=== PATIENT | male | born 1965 | race Hispanic/Latino ===

== ENCOUNTER 2020-06-04 19:25 | Inpatient (IN) | payer OTHER, SELFPAY ==
[2020-06-04 20:01] LABS: Hemoglobin 15.6 g/dL (13.5-17.5); Mean Corpuscular HGB CONC 33.8 g/dL (32.0-36.0); Mean Corpuscular Hemoglobin 32.1 pg (27.0-33.0); Mean Corpuscular Volume 94.9 fl (81.2-95.1); Mean Platelet Volume 9.3 fl (7.4-10.4); Platelet Count 405 10x3/uL (150-450); RBC Distribution Width 12.9 % (11.5-14.5); Red Blood Cell (RBC) Count 4.86 10x6/uL (4.32-5.72); White Blood Cell (WBC) Count 37.4 10x3/uL (3.5-10.5)
[2020-06-04] MEDS ORDERED: Piperacillin/Tazobactam 4.5 GM VIAL ONE (20:02)
[2020-06-04 20:17] LABS: ALT (SGPT) 11 U/L (8-55); AST (SGOT) 11 U/L (5-34); Albumin 3.9 g/dL (3.5-5.0); Alkaline Phosphatase 108 U/L (40-110); Anion Gap 21 mmol/L (10-20); BUN (Urea Nitrogen) 40 mg/dL (8.4-25.7); Bilirubin, Total 0.8 mg/dL (0.2-1.2); Calc. Creatinine Clearance 0 mL/min (70-130); Carbon Dioxide 20 mmol/L (22-29); Chloride 96 mmol/L (98-107); Globulin 4.5 g/dL (2.4-3.5); Glucose 139 mg/dL (70-105); Lipase 16 U/L (8-78); Potassium 4.2 mmol/L (3.5-5.1); Protein, Total 8.4 g/dL (6.0-8.3); Sodium 133 mmol/L (136-145)
[2020-06-04 20:28] LABS: Band 3 % (5-11); Lymphocytes 4 % (21-51); Monocytes 5 % (0-10); Neutrophil 88 % (42-75)
[2020-06-04 20:29] LABS: MDiff Complete? YES; Manual Diff?? YES
[2020-06-04 20:31] LABS: Platelet Morphology Comment Appears Adequate; RBC Morphology Normal
[2020-06-04 20:33] LABS: Reflex for Review?? YES
[2020-06-04 21:10] LABS: Bilirubin 1+ (Negative); Blood, Urine Negative (Negative); Clarity Clear (Clear); Glucose, Urine (Dipstick) Normal (Negative); Ketone, Urine 5 mg/dL (Negative); Leukocyte 25 (Negative); Nitrite Negative (Negative); Protein, Urine (Dipstick) 100 mg/dl (Neg-Trace)
[2020-06-04 21:34] LABS: Bacteria/HPF 3+ HPF (None Seen); Mucous/LPF 1+ LPF (<2+); RBC/HPF 0-3 HPF (0-3); Squamous Epithelial 0-3 HPF (0-3); Transitional Epithelial 0-3 HPF (None Seen); WBC/HPF 0-3 HPF (0-3)
[2020-06-04 21:35] LABS: Unclassified Crystals 1+ HPF (None Seen)
[2020-06-04 22:40] LABS: SARS-CoV-2 NAA Rapid Test Not Detected (NotDetected)
[2020-06-04] MEDS: Sodium Chloride 0.9% 1,000 ML IV SCH (22:50)
[2020-06-04] MEDS ORDERED: Ondansetron ODT 4 MG TAB SL PRN (23:00)
[2020-06-04] MEDS ORDERED: Ondansetron PF 4 MG/2 ML Vial IVP PRN (23:00)
[2020-06-04] MEDS ORDERED: Morphine 4 MG/ML VIAL SLOW IVP PRN (23:01)
[2020-06-04 23:16] VITALS: BMI 29.0
[2020-06-05] MEDS: Piperacillin/Tazobactam 3.375 GM in Sodium Chloride 0.9% 100 ML IVPB SCH ×3 (00:03→16:45)
[2020-06-05 06:35] LABS: Hemoglobin 13.3 g/dL (13.5-17.5); Mean Corpuscular HGB CONC 33.3 g/dL (32.0-36.0); Mean Corpuscular Hemoglobin 32.3 pg (27.0-33.0); Mean Corpuscular Volume 97.1 fl (81.2-95.1); Mean Platelet Volume 9.5 fl (7.4-10.4); Platelet Count 381 10x3/uL (150-450); RBC Distribution Width 12.8 % (11.5-14.5); Red Blood Cell (RBC) Count 4.12 10x6/uL (4.32-5.72); White Blood Cell (WBC) Count 31.4 10x3/uL (3.5-10.5)
[2020-06-05 06:46] LABS: Anion Gap 16 mmol/L (10-20); BUN (Urea Nitrogen) 34 mg/dL (8.4-25.7); Calc. Creatinine Clearance 97 mL/min (70-130); Calcium 9.2 mg/dL (7.8-10.44); Carbon Dioxide 21 mmol/L (22-29); Chloride 102 mmol/L (98-107); Glucose 106 mg/dL (70-105); Potassium 4.1 mmol/L (3.5-5.1); Sodium 135 mmol/L (136-145)
[2020-06-05 07:26] LABS: MDiff Complete? YES
[2020-06-05] MEDS: Sodium Chloride 0.9% 1,000 ML IV SCH (07:53)
[2020-06-05 07:54] LABS: Band 2 % (5-11); Lymphocytes 8 % (21-51); Monocytes 8 % (0-10); Neutrophil 81 % (42-75); Reactive Lymphocytes 1 % (0-10)
[2020-06-05 07:55] LABS: Platelet Morphology Comment Appears Adequate
[2020-06-05] MEDS ORDERED: Ondansetron PF 4 MG/2 ML Vial ONE (09:16)
[2020-06-05] MEDS ORDERED: Fentanyl 100 MCG/2 ML VIAL ONE (09:16)
[2020-06-05] MEDS ORDERED: Midazolam HCl 5 mg/5 ml Vial ONE (09:17)
[2020-06-05] MEDS ORDERED: Lidocaine 1% PF 5 ML VIAL ONE (09:17)
[2020-06-05] MEDS ORDERED: Naloxone HCl 0.4 mg/ml Vial ONE (09:17)
[2020-06-05] MEDS ORDERED: Sodium Chloride 0.9% 1,000 ML ONE (09:18)
[2020-06-05] MEDS ORDERED: Sodium Bicarbonate 2.5 MEQ/5 ML VIAL ONE (09:18)
[2020-06-05] MEDS ORDERED: Morphine 4 MG/ML VIAL SLOW IVP PRN (09:52)
[2020-06-05] MEDS ORDERED: hydrALAZINE 20 MG/ML VIAL SLOW IVP PRN (09:52)
[2020-06-05] MEDS ORDERED: Morphine 2 MG/ML VIAL SLOW IVP PRN (09:52)
[2020-06-05] MEDS ORDERED: Calcium Carbonate 500 MG ChewTAB PO PRN (09:52)
[2020-06-05] MEDS ORDERED: Promethazine HCl 25 MG/ML VIAL IM PRN (09:52)
[2020-06-05] MEDS ORDERED: Ondansetron PF 4 MG/2 ML Vial IVP PRN (09:52)
[2020-06-05] MEDS ORDERED: Lidocaine 1% (PF) 30 ML VIAL ONE (09:59)
[2020-06-05] MEDS ORDERED: Mag-Al Plus 1200 MG/1200 MG/120 MG/30 ML UDCUP PO PRN (10:14)
[2020-06-05] MEDS: Ketorolac Tromethamine 30 MG/ML VIAL IVP SCH ×2 (12:30→18:38)
[2020-06-05] MEDS: Lactated Ringer's 1,000 ML IV SCH ×2 (12:30→23:35)
[2020-06-05] MEDS ORDERED: Acetaminophen 325 MG TAB PO PRN (14:38)
[2020-06-05] MEDS: Famotidine/PF 20 mg/2ml Vial SLOW IVP SCH (19:50)
[2020-06-05] MEDS ORDERED: Enoxaparin Sodium 40 MG/0.4 ML SYRINGE SC SCH (21:00)
[2020-06-06] MEDS: Piperacillin/Tazobactam 3.375 GM in Sodium Chloride 0.9% 100 ML IVPB SCH ×2 (02:43→10:18)
[2020-06-06] MEDS: Ketorolac Tromethamine 30 MG/ML VIAL IVP SCH ×2 (05:21→12:07)
[2020-06-06 06:08] LABS: ALT (SGPT) 42 U/L (8-55); AST (SGOT) 54 U/L (5-34); Alkaline Phosphatase 113 U/L (40-110); Anion Gap 12 mmol/L (10-20); BUN (Urea Nitrogen) 28 mg/dL (8.4-25.7); Calc. Creatinine Clearance 117 mL/min (70-130); Calcium 8.9 mg/dL (7.8-10.44); Carbon Dioxide 23 mmol/L (22-29); Chloride 106 mmol/L (98-107); Globulin 3.3 g/dL (2.4-3.5); Glucose 99 mg/dL (70-105); Potassium 4.5 mmol/L (3.5-5.1); Protein, Total 6.3 g/dL (6.0-8.3); Sodium 136 mmol/L (136-145)
[2020-06-06 06:11] LABS: #Basophils 0.1 10x3/uL (0.0-0.2); #Eosinphils 0.3 10x3/uL (0.0-0.5); #Monocytes 1.4 10x3/uL (0.0-1.1); #Neutrophils 12.8 10x3/uL (1.5-8.4); %Basophils 0.4 % (0.0-2.0); %Lymphocytes 8.3 % (18.0-47.0); %Monocytes 8.8 % (0.0-10.0); %Neutrophils 79.9 % (40.0-75.0); Hemoglobin 13.1 g/dL (13.5-17.5); Mean Corpuscular HGB CONC 33.3 g/dL (32.0-36.0); Mean Corpuscular Hemoglobin 32.3 pg (27.0-33.0); Mean Corpuscular Volume 96.8 fl (81.2-95.1); Platelet Count 369 10x3/uL (150-450); Red Blood Cell (RBC) Count 4.06 10x6/uL (4.32-5.72)
[2020-06-06] MEDS: Lactated Ringer's 1,000 ML IV SCH (06:35)
[2020-06-06 12:02] VITALS: BP 159/85; TEMP 98.2
[2020-06-06] MEDS: Famotidine/PF 20 mg/2ml Vial SLOW IVP SCH (12:07)
== END 2020-06-06 12:15 | disposition home or self-care (01) | DRG 392 ==
LOC: CSHERS 19:25 → CSHTELE 23:07
PROVIDERS: ADMIT Surgery; ATTEND Surgery
PROC: 0D9E30Z Drainage of Large Intestine with Drainage Device, Percutaneous Approach (ICD-10-PCS; principal; 2020-06-05)
DX: K57.20 Diverticulitis of large intestine with perforation and abscess without bleeding (principal); N17.9 Acute kidney failure, unspecified; E86.0 Dehydration; Z20.822 Contact with and (suspected) exposure to COVID-19
CPT/HCPCS: 36415; 49020; 71045; 74177; 80048; 80053; 80500; 81003; 81015; 83605; 83690; 85025; 87040; 87070; 87077; 87086; 87186; 87205; 93005; 96365; 96366; 99152; 99153; C1729; J1650; J1885; J2001; J2250; J2270; J2310; J2405; J2543; J3010; J3490; J7050; S0028; U0002

== ENCOUNTER 2020-06-14 12:22 | Inpatient (IN) | payer SELFPAY ==
[2020-06-14 13:38] LABS: Hemoglobin 14.6 g/dL (13.5-17.5); Mean Corpuscular HGB CONC 32.7 g/dL (32.0-36.0); Mean Corpuscular Hemoglobin 31.9 pg (27.0-33.0); Mean Corpuscular Volume 97.4 fl (81.2-95.1); Mean Platelet Volume 8.7 fl (7.4-10.4); Platelet Count 830 10x3/uL (150-450); RBC Distribution Width 13.2 % (11.5-14.5); Red Blood Cell (RBC) Count 4.58 10x6/uL (4.32-5.72)
[2020-06-14 13:43] LABS: White Blood Cell (WBC) Count 28.6 10x3/uL (3.5-10.5)
[2020-06-14] MEDS ORDERED: Meropenem 500 MG VIAL ONE (13:47)
[2020-06-14 13:49] LABS: ALT (SGPT) 15 U/L (8-55); AST (SGOT) 16 U/L (5-34); Albumin 3.5 g/dL (3.5-5.0); Alkaline Phosphatase 86 U/L (40-110); Anion Gap 21 mmol/L (10-20); BUN (Urea Nitrogen) 19 mg/dL (8.4-25.7); Bilirubin, Total 0.6 mg/dL (0.2-1.2); Calc. Creatinine Clearance 0 mL/min (70-130); Calcium 9.9 mg/dL (7.8-10.44); Carbon Dioxide 22 mmol/L (22-29); Chloride 99 mmol/L (98-107); Globulin 4.6 g/dL (2.4-3.5); Glucose 101 mg/dL (70-105); Potassium 4.6 mmol/L (3.5-5.1); Protein, Total 8.1 g/dL (6.0-8.3); Sodium 137 mmol/L (136-145)
[2020-06-14 14:38] LABS: Eosinophils 1 % (0-10); Lymphocytes 8 % (21-51); Monocytes 4 % (0-10); Myelocyte 1 % (0-0); Neutrophil 86 % (42-75)
[2020-06-14 14:39] LABS: Giant Platelets SLIGHT; Large Platelets SLIGHT; MDiff Complete? YES; Platelet Morphology Comment Appears Increased; RBC Morphology Normal
[2020-06-14] MEDS ORDERED: Morphine 4 MG/ML VIAL ONE (15:47)
[2020-06-14] MEDS ORDERED: HYDROcodone/Acetaminophen 10/325 mg Tablet PO PRN ×2 (16:07)
[2020-06-14] MEDS ORDERED: Morphine 2 MG/ML VIAL SLOW IVP PRN (16:07)
[2020-06-14] MEDS ORDERED: Ondansetron PF 4 MG/2 ML Vial IVP PRN (16:07)
[2020-06-14] MEDS ORDERED: Lorazepam 2 MG/ML VIAL SLOW IVP PRN ×2 (16:07)
[2020-06-14] MEDS ORDERED: Ondansetron ODT 4 MG TAB PO PRN (16:07)
[2020-06-14] MEDS ORDERED: hydrALAZINE 20 MG/ML VIAL SLOW IVP PRN (16:07)
[2020-06-14] MEDS ORDERED: Ibuprofen 600 MG TAB PO PRN (16:15)
[2020-06-14] MEDS ORDERED: traMADol HCl 50 MG TAB PO PRN (16:15)
[2020-06-14] MEDS ORDERED: Acetaminophen 500 MG TAB PO PRN (16:15)
[2020-06-14 16:32] LABS: INR-International Normal Ratio 1.4; PTT 34.7 sec (22.0-33.0); Prothrombin Time 15.5 sec (9.5-12.1)
[2020-06-14 16:58] VITALS: BMI 25.5
[2020-06-14] MEDS ORDERED: Piperacillin/Tazobactam 4.5 GM VIAL ONE (17:58)
[2020-06-14] MEDS: Piperacillin/Tazobactam 4.5 GM in Sodium Chloride 0.9% 100 ML IVPB SCH (18:32)
[2020-06-14] MEDS: Famotidine 20 MG TAB PO SCH (19:45)
[2020-06-14] MEDS ORDERED: Enoxaparin Sodium 40 MG/0.4 ML SYRINGE SC SCH (21:00)
[2020-06-15] MEDS: Piperacillin/Tazobactam 4.5 GM in Sodium Chloride 0.9% 100 ML IVPB SCH ×2 (01:02→09:47)
[2020-06-15] MEDS ORDERED: Sodium Chloride 0.9% 100 ML ONE (01:44)
[2020-06-15] MEDS ORDERED: Piperacillin/Tazobactam 4.5 GM VIAL ONE ×2 (01:54→07:17)
[2020-06-15] MEDS: Morphine 4 MG/ML VIAL SLOW IVP PRN ×2 (03:03→11:39)
[2020-06-15 06:27] LABS: #Basophils 0.1 10x3/uL (0.0-0.2); #Eosinphils 0.1 10x3/uL (0.0-0.5); #Monocytes 1.7 10x3/uL (0.0-1.1); #Neutrophils 16.8 10x3/uL (1.5-8.4); %Basophils 0.4 % (0.0-2.0); %Eosinophils 0.4 % (0.0-6.0); %Lymphocytes 11.1 % (18.0-47.0); %Monocytes 7.9 % (0.0-10.0); Hemoglobin 11.8 g/dL (13.5-17.5); Mean Corpuscular HGB CONC 32.3 g/dL (32.0-36.0); Mean Corpuscular Volume 98.9 fl (81.2-95.1); Mean Platelet Volume 9.3 fl (7.4-10.4); Platelet Count 747 10x3/uL (150-450); RBC Distribution Width 13.2 % (11.5-14.5); Red Blood Cell (RBC) Count 3.69 10x6/uL (4.32-5.72); White Blood Cell (WBC) Count 21.2 10x3/uL (3.5-10.5)
[2020-06-15 06:52] LABS: ALT (SGPT) 11 U/L (8-55); AST (SGOT) 18 U/L (5-34); Albumin 2.7 g/dL (3.5-5.0); Alkaline Phosphatase 72 U/L (40-110); Anion Gap 13 mmol/L (10-20); BUN (Urea Nitrogen) 14 mg/dL (8.4-25.7); Bilirubin, Total 0.5 mg/dL (0.2-1.2); Calc. Creatinine Clearance 106 mL/min (70-130); Calcium 8.6 mg/dL (7.8-10.44); Carbon Dioxide 24 mmol/L (22-29); Chloride 103 mmol/L (98-107); Globulin 3.5 g/dL (2.4-3.5); Glucose 91 mg/dL (70-105); Potassium 4.5 mmol/L (3.5-5.1); Protein, Total 6.2 g/dL (6.0-8.3); Sodium 135 mmol/L (136-145)
[2020-06-15] MEDS ORDERED: Lidocaine 1% (PF) 30 ML VIAL ONE (07:16)
[2020-06-15] MEDS ORDERED: Piperacillin/Tazobactam 3.375 GM in Sodium Chloride 0.9% 100 ML IVPB SCH ×2 (08:00→12:00)
[2020-06-15] MEDS ORDERED: Polyethylene Glycol 3350 17 GM Packet PO SCH (09:00)
[2020-06-15] MEDS: Famotidine 20 MG TAB PO SCH (09:37)
[2020-06-15 12:23] VITALS: BP 135/78; TEMP 99.1
[2020-06-15 16:18] LABS: SARS-CoV-2 PCR by NAA Not Detected (NotDetected)
[2020-06-15] MEDS ORDERED: Amoxicillin/Potassium Clav 500 MG TAB PO SCH (21:00)
== END 2020-06-15 13:02 | disposition home or self-care (01) | DRG 346 ==
LOC: CSHERS 12:22 → CSHTELE 16:48
PROVIDERS: ADMIT Specialist; ATTEND Specialist
PROC: 0DW Gastrointestinal System, Revision (ICD-10-PCS; principal; 2020-06-14)
DX: K57.20 Diverticulitis of large intestine with perforation and abscess without bleeding (principal); F17.210 Nicotine dependence, cigarettes, uncomplicated; F10.10 Alcohol abuse, uncomplicated; Z20.822 Contact with and (suspected) exposure to COVID-19
CPT/HCPCS: 36415; 49423; 49424; 74176; 74177; 76000; 80053; 83605; 85025; 85610; 85730; 87040; 87635; 94760; 96365; 96375; J1650; J2001; J2185; J2270; J2543; J3490; U0003; U0005

== ENCOUNTER 2020-06-22 10:45 | Inpatient (IN) | payer SELFPAY ==
[2020-06-22 12:05] LABS: #Basophils 0.1 10x3/uL (0.0-0.2); #Monocytes 1.6 10x3/uL (0.0-1.1); #Neutrophils 16.2 10x3/uL (1.5-8.4); %Basophils 0.3 % (0.0-2.0); %Eosinophils 0.2 % (0.0-6.0); %Lymphocytes 9.9 % (18.0-47.0); %Monocytes 8.1 % (0.0-10.0); %Neutrophils 80.8 % (40.0-75.0); Hemoglobin 14.6 g/dL (13.5-17.5); Mean Corpuscular Hemoglobin 31.4 pg (27.0-33.0); Mean Corpuscular Volume 95.1 fl (81.2-95.1); Mean Platelet Volume 9.2 fl (7.4-10.4); Platelet Count 801 10x3/uL (150-450); RBC Distribution Width 13.1 % (11.5-14.5); Red Blood Cell (RBC) Count 4.65 10x6/uL (4.32-5.72)
[2020-06-22 12:11] LABS: ALT (SGPT) 29 U/L (8-55); AST (SGOT) 27 U/L (5-34); Albumin 3.7 g/dL (3.5-5.0); Alkaline Phosphatase 81 U/L (40-110); Anion Gap 20 mmol/L (10-20); BUN (Urea Nitrogen) 16 mg/dL (8.4-25.7); Calc. Creatinine Clearance 0 mL/min (70-130); Calcium 10.1 mg/dL (7.8-10.44); Carbon Dioxide 23 mmol/L (22-29); Chloride 96 mmol/L (98-107); Globulin 3.8 g/dL (2.4-3.5); Glucose 115 mg/dL (70-105); Lipase 39 U/L (8-78); Potassium 5.3 mmol/L (3.5-5.1); Protein, Total 7.5 g/dL (6.0-8.3); Sodium 134 mmol/L (136-145)
[2020-06-22] MEDS ORDERED: Morphine 4 MG/ML VIAL ONE (12:27)
[2020-06-22] MEDS ORDERED: Ondansetron PF 4 MG/2 ML Vial ONE (12:27)
[2020-06-22 13:25] LABS: Platelet Morphology Comment Appears Increased
[2020-06-22] MEDS ORDERED: Ondansetron PF 4 MG/2 ML Vial IVP PRN (14:33)
[2020-06-22] MEDS ORDERED: Piperacillin/Tazobactam 3.375 GM VIAL ONE (14:42)
[2020-06-22] MEDS: Lactated Ringer's 1,000 ML IV SCH ×2 (17:44→23:15)
[2020-06-22] MEDS: Morphine 4 MG/ML VIAL SLOW IVP PRN ×3 (17:44→23:48)
[2020-06-22 17:45] VITALS: BMI 23.6
[2020-06-22] MEDS: Famotidine/PF 20 mg/2ml Vial SLOW IVP SCH (21:12)
[2020-06-22] MEDS: Piperacillin/Tazobactam 3.375 GM in Sodium Chloride 0.9% 100 ML IVPB SCH (23:16)
[2020-06-23] MEDS: Morphine 4 MG/ML VIAL SLOW IVP PRN ×3 (02:55→09:00)
[2020-06-23 04:42] LABS: #Basophils 0.1 10x3/uL (0.0-0.2); #Eosinphils 0.1 10x3/uL (0.0-0.5); #Monocytes 1.6 10x3/uL (0.0-1.1); #Neutrophils 11.9 10x3/uL (1.5-8.4); %Basophils 0.6 % (0.0-2.0); %Eosinophils 0.8 % (0.0-6.0); %Lymphocytes 12.6 % (18.0-47.0); %Monocytes 9.9 % (0.0-10.0); %Neutrophils 75.2 % (40.0-75.0); Hemoglobin 12.3 g/dL (13.5-17.5); Mean Corpuscular HGB CONC 33.1 g/dL (32.0-36.0); Mean Corpuscular Hemoglobin 31.5 pg (27.0-33.0); Mean Corpuscular Volume 95.1 fl (81.2-95.1); Mean Platelet Volume 8.6 fl (7.4-10.4); Platelet Count 616 10x3/uL (150-450); RBC Distribution Width 13.1 % (11.5-14.5); Red Blood Cell (RBC) Count 3.91 10x6/uL (4.32-5.72); White Blood Cell (WBC) Count 15.9 10x3/uL (3.5-10.5)
[2020-06-23 04:44] LABS: SARS-CoV-2 PCR by NAA Not Detected (NotDetected)
[2020-06-23 04:55] LABS: Anion Gap 15 mmol/L (10-20)
[2020-06-23 05:16] LABS: BUN (Urea Nitrogen) 11 mg/dL (8.4-25.7); Calc. Creatinine Clearance 120 mL/min (70-130); Calcium 8.6 mg/dL (7.8-10.44); Carbon Dioxide 24 mmol/L (22-29); Chloride 98 mmol/L (98-107); Glucose 92 mg/dL (70-105); Potassium 4.2 mmol/L (3.5-5.1); Sodium 133 mmol/L (136-145)
[2020-06-23] MEDS: Piperacillin/Tazobactam 3.375 GM in Sodium Chloride 0.9% 100 ML IVPB SCH ×3 (06:23→23:53)
[2020-06-23] MEDS: Lactated Ringer's 1,000 ML IV SCH ×3 (07:00→17:38)
[2020-06-23] MEDS: Famotidine/PF 20 mg/2ml Vial SLOW IVP SCH ×2 (08:12→20:37)
[2020-06-23] MEDS ORDERED: PROPOFOL 20 ML ONE (12:18)
[2020-06-23] MEDS ORDERED: Midazolam HCl 2 mg/2 ml Vial ONE (12:19)
[2020-06-23] MEDS ORDERED: Ketorolac Tromethamine 15 MG/ML VIAL ONE (12:19)
[2020-06-23] MEDS ORDERED: Fentanyl 100 MCG/2 ML VIAL ONE (12:19)
[2020-06-23] MEDS ORDERED: Glycopyrrolate 0.2 MG/ML 5 ML SYRINGE ONE (12:21)
[2020-06-23] MEDS ORDERED: Ondansetron PF 4 MG/2 ML Vial ONE (12:21)
[2020-06-23] MEDS ORDERED: Dexamethasone 4 mg/ml Vial ONE (12:21)
[2020-06-23] MEDS ORDERED: Lidocaine 1% PF 5 ML VIAL ONE (12:21)
[2020-06-23] MEDS ORDERED: Morphine 1 ML ONE (13:14)
[2020-06-23] MEDS ORDERED: Calcium Gluconate 100 MG/ML 10 ML ONE (13:34)
[2020-06-23] MEDS ORDERED: Calcium Chloride 1 GM/10 ML Abboject SYRINGE ONE (13:36)
[2020-06-23] MEDS ORDERED: PHENYLEPHRINE-NS 100 MCG/ML 10 ML SYRINGE ONE (13:40)
[2020-06-23] MEDS ORDERED: ePHEDrine 50 MG/ML VIAL ONE (14:00)
[2020-06-23] MEDS ORDERED: SUGAMMADEX SODIUM 500 MG/5 ML VIAL ONE (15:53)
[2020-06-23] MEDS ORDERED: Morphine 2 MG/ML VIAL ONE ×2 (17:17→17:29)
[2020-06-23 17:59] LABS: Anion Gap 19 mmol/L (10-20); BUN (Urea Nitrogen) 12 mg/dL (8.4-25.7); Calc. Creatinine Clearance 106 mL/min (70-130); Calcium 8.3 mg/dL (7.8-10.44); Carbon Dioxide 18 mmol/L (22-29); Chloride 101 mmol/L (98-107); Glucose 135 mg/dL (70-105); Potassium 5.1 mmol/L (3.5-5.1); Sodium 133 mmol/L (136-145)
[2020-06-23 18:18] LABS: #Basophils 0.1 10x3/uL (0.0-0.2); #Monocytes 1.1 10x3/uL (0.0-1.1); #Neutrophils 27.6 10x3/uL (1.5-8.4); %Basophils 0.3 % (0.0-2.0); %Lymphocytes 2.4 % (18.0-47.0); %Monocytes 3.6 % (0.0-10.0); Mean Corpuscular HGB CONC 33.9 g/dL (32.0-36.0); Mean Corpuscular Hemoglobin 31.9 pg (27.0-33.0); Mean Corpuscular Volume 93.9 fl (81.2-95.1); Mean Platelet Volume 8.7 fl (7.4-10.4); Platelet Count 622 10x3/uL (150-450); RBC Distribution Width 13.8 % (11.5-14.5); Red Blood Cell (RBC) Count 4.08 10x6/uL (4.32-5.72)
[2020-06-23 20:28] LABS: MDiff Complete? YES; Neutrophil 92 % (42-75)
[2020-06-23 20:29] LABS: Band 2 % (5-11); Lymphocytes 2 % (21-51); Monocytes 2 % (0-10); Reactive Lymphocytes 2 % (0-10)
[2020-06-23 20:34] LABS: Platelet Morphology Comment Appears Increased
[2020-06-23] MEDS: Ketorolac Tromethamine 30 MG/ML VIAL IVP SCH (20:35)
[2020-06-24] MEDS: Ketorolac Tromethamine 30 MG/ML VIAL IVP SCH ×4 (00:33→17:28)
[2020-06-24 05:25] LABS: #Basophils 0.1 10x3/uL (0.0-0.2); #Monocytes 1.8 10x3/uL (0.0-1.1); #Neutrophils 19.6 10x3/uL (1.5-8.4); %Basophils 0.2 % (0.0-2.0); %Lymphocytes 7.4 % (18.0-47.0); %Monocytes 7.8 % (0.0-10.0); %Neutrophils 83.5 % (40.0-75.0); Hemoglobin 11.6 g/dL (13.5-17.5); Mean Corpuscular HGB CONC 34.1 g/dL (32.0-36.0); Mean Corpuscular Hemoglobin 31.5 pg (27.0-33.0); Mean Corpuscular Volume 92.4 fl (81.2-95.1); Mean Platelet Volume 8.6 fl (7.4-10.4); Platelet Count 562 10x3/uL (150-450); Red Blood Cell (RBC) Count 3.68 10x6/uL (4.32-5.72); White Blood Cell (WBC) Count 23.5 10x3/uL (3.5-10.5)
[2020-06-24] MEDS: Lactated Ringer's 1,000 ML IV SCH ×2 (05:51→14:02)
[2020-06-24 06:08] LABS: Anion Gap 17 mmol/L (10-20); BUN (Urea Nitrogen) 15 mg/dL (8.4-25.7); Calc. Creatinine Clearance 100 mL/min (70-130); Calcium 8.6 mg/dL (7.8-10.44); Carbon Dioxide 22 mmol/L (22-29); Chloride 100 mmol/L (98-107); Glucose 115 mg/dL (70-105); Potassium 4.8 mmol/L (3.5-5.1); Sodium 134 mmol/L (136-145)
[2020-06-24] MEDS ORDERED: Sodium Chloride 0.9% 100 ML ONE (06:59)
[2020-06-24] MEDS ORDERED: Piperacillin/Tazobactam 3.375 GM VIAL ONE (06:59)
[2020-06-24] MEDS: Piperacillin/Tazobactam 3.375 GM in Sodium Chloride 0.9% 100 ML IVPB SCH ×3 (07:10→22:41)
[2020-06-24] MEDS: D5 1/2 NS w/20 mEq KCL 1,000 ML IV SCH ×2 (09:00→17:28)
[2020-06-24] MEDS: Famotidine/PF 20 mg/2ml Vial SLOW IVP SCH ×2 (09:00→20:36)
[2020-06-25] MEDS: Ketorolac Tromethamine 30 MG/ML VIAL IVP SCH ×4 (01:13→18:17)
[2020-06-25] MEDS: Morphine 4 MG/ML VIAL SLOW IVP PRN (01:36)
[2020-06-25] MEDS: D5 1/2 NS w/20 mEq KCL 1,000 ML IV SCH ×2 (04:30→10:44)
[2020-06-25 04:54] LABS: #Basophils 0.1 10x3/uL (0.0-0.2); #Eosinphils 0.3 10x3/uL (0.0-0.5); #Monocytes 1.5 10x3/uL (0.0-1.1); #Neutrophils 15.3 10x3/uL (1.5-8.4); %Basophils 0.3 % (0.0-2.0); %Eosinophils 1.4 % (0.0-6.0); %Lymphocytes 8.9 % (18.0-47.0); %Neutrophils 80.3 % (40.0-75.0); Hemoglobin 9.9 g/dL (13.5-17.5); Mean Corpuscular HGB CONC 33.1 g/dL (32.0-36.0); Mean Corpuscular Hemoglobin 31.2 pg (27.0-33.0); Mean Corpuscular Volume 94.3 fl (81.2-95.1); Platelet Count 458 10x3/uL (150-450); RBC Distribution Width 13.9 % (11.5-14.5); Red Blood Cell (RBC) Count 3.17 10x6/uL (4.32-5.72)
[2020-06-25 05:08] LABS: Anion Gap 13 mmol/L (10-20); BUN (Urea Nitrogen) 12 mg/dL (8.4-25.7); Calc. Creatinine Clearance 96 mL/min (70-130); Carbon Dioxide 25 mmol/L (22-29); Chloride 103 mmol/L (98-107); Glucose 135 mg/dL (70-105); Sodium 136 mmol/L (136-145)
[2020-06-25] MEDS: Piperacillin/Tazobactam 3.375 GM in Sodium Chloride 0.9% 100 ML IVPB SCH ×3 (06:13→23:18)
[2020-06-25] MEDS ORDERED: Enoxaparin Sodium 40 MG/0.4 ML SYRINGE SC SCH (07:45)
[2020-06-25] MEDS ORDERED: HYDROcodone/Acetaminophen 5/325 mg Tablet PO PRN ×2 (08:12)
[2020-06-25] MEDS: Famotidine/PF 20 mg/2ml Vial SLOW IVP SCH ×2 (09:25→21:39)
[2020-06-26] MEDS: Ketorolac Tromethamine 30 MG/ML VIAL IVP SCH ×4 (01:28→19:01)
[2020-06-26] MEDS: Piperacillin/Tazobactam 3.375 GM in Sodium Chloride 0.9% 100 ML IVPB SCH ×3 (07:38→23:27)
[2020-06-26 08:52] LABS: #Basophils 0.1 10x3/uL (0.0-0.2); #Eosinphils 0.6 10x3/uL (0.0-0.5); #Monocytes 1.4 10x3/uL (0.0-1.1); %Basophils 0.5 % (0.0-2.0); %Eosinophils 3.6 % (0.0-6.0); %Lymphocytes 9.2 % (18.0-47.0); %Monocytes 8.4 % (0.0-10.0); %Neutrophils 77.4 % (40.0-75.0); Hemoglobin 10.7 g/dL (13.5-17.5); Mean Corpuscular HGB CONC 32.8 g/dL (32.0-36.0); Mean Corpuscular Hemoglobin 31.3 pg (27.0-33.0); Mean Corpuscular Volume 95.3 fl (81.2-95.1); Mean Platelet Volume 8.7 fl (7.4-10.4); Platelet Count 494 10x3/uL (150-450); RBC Distribution Width 13.7 % (11.5-14.5); Red Blood Cell (RBC) Count 3.42 10x6/uL (4.32-5.72); White Blood Cell (WBC) Count 16.8 10x3/uL (3.5-10.5)
[2020-06-26] MEDS: Famotidine/PF 20 mg/2ml Vial SLOW IVP SCH ×2 (10:39→22:26)
[2020-06-26] MEDS: Enoxaparin Sodium 40 MG/0.4 ML SYRINGE SC SCH (10:39)
[2020-06-27] MEDS: Ketorolac Tromethamine 30 MG/ML VIAL IVP SCH ×2 (00:43→07:57)
[2020-06-27] MEDS: Piperacillin/Tazobactam 3.375 GM in Sodium Chloride 0.9% 100 ML IVPB SCH (07:57)
[2020-06-27] MEDS: Enoxaparin Sodium 40 MG/0.4 ML SYRINGE SC SCH (09:54)
[2020-06-27] MEDS: Famotidine/PF 20 mg/2ml Vial SLOW IVP SCH (09:54)
[2020-06-27 13:33] VITALS: BP 107/70; TEMP 98.2
== END 2020-06-27 14:39 | disposition home or self-care (01) | DRG 331 ==
LOC: CSHERS 10:45 → CSHTELE 17:26
PROVIDERS: ADMIT Surgery; ATTEND Surgery
PROC: 0D1B0Z4 Bypass Ileum to Cutaneous, Open Approach (ICD-10-PCS; principal; 2020-06-23)
PROC: 0DBN0ZZ Excision of Sigmoid Colon, Open Approach (ICD-10-PCS; 2020-06-23)
PROC: 0DB80ZZ Excision of Small Intestine, Open Approach (ICD-10-PCS; 2020-06-23)
PROC: 30233N1 Transfusion of Nonautologous Red Blood Cells into Peripheral Vein, Percutaneous Approach (ICD-10-PCS; 2020-06-23)
DX: K57.20 Diverticulitis of large intestine with perforation and abscess without bleeding (principal); Z20.822 Contact with and (suspected) exposure to COVID-19; F17.210 Nicotine dependence, cigarettes, uncomplicated
CPT/HCPCS: 36415; 36430; 74177; 80048; 80053; 82378; 83690; 85025; 86850; 86900; 86901; 87635; 88307; 93005; 93010; 96365; 96366; 96375; J0610; J1100; J1650; J1885; J2250; J2270; J2405; J2543; J2704; J3010; J3480; J3490; J7120; P9016; S0028; U0003; U0005